=== PATIENT | male | born 1985 | race Caucasian/White ===

== ENCOUNTER 2016-12-13 15:39 | Emergency (ER) | payer MEDICAID ==
[2016-12-13 15:49] VITALS: BP 104/74; PULSE 93; RESP 16; TEMP 98.6; O2SAT 97
--- NOTE | 2016-12-13 17:41 | EDPHY ---
H & P Stated Complaint: Depressed, anxious,exacerbated by relationship problems. SI no plan Time Seen by Provider: 12/13/16 17:20 HPI/ROS: CHIEF COMPLAINT: "I am just really emotional" HISTORY OF PRESENT ILLNESS: 31-year-old male with possible history of depression, history of HIV positive, self discharged on medications for years ago followed by Dr. Serena Gaxiola , currently homeless , "couch surfing" states that today while sitting in the park he became "emotional" describes feeling sad while think it back on his life, states that he recently broke up with boyfriend, he has been on a variety of on healthy relationships and did not or becomes so came to the ER. He adamantly denies suicidal homicidal ideation. Denies hallucination. He denies headache. Denies fever chills. Denies vomiting. Denies chest pain. Denies cough. Denies flu-like symptoms. Denies headache. PHYSICAL EXAM (Prior to examination, patient consented to physical exam, hands were washed and my usual and customary physical exam procedures followed) 1) GENERAL: Well-developed, well-nourished, alert and oriented. Appears to be in no acute distress. 2) HEAD: Normocephalic 3) HEENT: sclera anicteric 4) LUNGS: Breathing comfortably. - Personal History Current Tetanus Diphtheria and Acellular Pertussis (TDAP): Yes - Medical/Surgical History Hx Asthma: No Hx Chronic Respiratory Disease: No Hx Diabetes: No Hx Cardiac Disease: No Hx Renal Disease: No Hx Cirrhosis: No Hx Alcoholism: No Hx HIV/AIDS: Yes Hx Splenectomy or Spleen Trauma: No Other PMH: drug abuse, ulcerative colitis, HIV. depression - Social History Smoking Status: Current every day smoker Constitutional: Initial Vital Signs Temperature (C) 37 C 12/13/16 15:43 Heart Rate 93 12/13/16 15:43 Respiratory Rate 16 12/13/16 15:43 Blood Pressure 104/74 12/13/16 15:43 O2 Sat (%) 97 12/13/16 15:43 O2 Delivery Mode Room Air Allergies/Adverse Reactions: "ABX" Allergy (Uncoded 09/24/15 15:51) Medical Decision Making ED Course/Re-evaluation: 5:39 p.m.: I do not think this patient meets criteria for an M1 hold at this time. He states that he is feeling better after talking to me in the emergency department. Have discussed the 24 hour mental health [facility] which he states that he may go to after leaving the ER. He denies suicidal homicidal ideation. Doubt HIV dementia. He feels comfortable being discharged. Given usual and customary psychiatric precautions and instructions.Care of patient under supervision of [secondary] supervising physician Dr Machado . Departure - Departure Disposition: Home, Routine, Self-Care Clinical Impression: Feeling of sadness Condition: Good Instructions: Depression (ED) Additional Instructions: Return to the emergency department if developed feelings of hurting or killing yourself or others, iif you develop headaches, flu-like symptoms or any other symptoms that concern you. Referrals: [facility] [Clinic] - As per Instructions
== END 2016-12-13 18:24 | disposition home or self-care (01) ==
DX: R45.89 Other symptoms and signs involving emotional state (principal); F17.200 Nicotine dependence, unspecified, uncomplicated

== ENCOUNTER 2017-01-09 18:36 | Emergency (ER) | payer MEDICAID ==
[2017-01-09 18:52] LABS: % IMMATURE GRANULYOCYTES 0.3 % (0.0-1.1); ABSOLUTE IMMATURE GRANULOCYTES 0.02 10^3/uL (0.00-0.10); ADD DIFF? NO; ADD MORPH? NO; ADD SCAN? NO; ATYPICAL LYMPHOCYTE FLAG 20 (0-99); FRAGMENT RBC FLAG 0 (0-99); HEMATOCRIT 46.8 % (40.0-51.0); HEMOGLOBIN 16.4 g/dL (13.7-17.5); LEFT SHIFT FLG 0 (0-99); LIPEMIA HEMOLYSIS FLAG 90 (0-99); MEAN CELL HEMOGLOBIN 30.4 pg (27.9-34.1); MEAN CELL VOLUME 86.8 fL (81.5-99.8); MEAN PLATELET VOLUME 11.2 fL (8.7-11.7); PLATELET CLUMPS FLAG 10 (0-99); PLATELET COUNT 199 10^3/uL (150-400); RED BLOOD CELL COUNT 5.39 10^6/uL (4.40-6.38); RED CELL DISTRIBUTION WIDTH 13.7 % (11.5-15.2)
[2017-01-09 19:15] LABS: ANION GAP 15 mEq/L (8-16); CALCIUM 9.6 mg/dL (8.5-10.4); CARBON DIOXIDE 22 mEq/l (22-31); CHLORIDE 106 mEq/L (97-110); CREATININE 1.1 mg/dL (0.7-1.3); ETHANOL SERUM < 10 mg/dL (0-10); GLOMERULAR FILTRATION RATE > 60; GLUCOSE 81 mg/dL (70-100); POTASSIUM 3.9 mEq/L (3.5-5.2); SODIUM 143 mEq/L (134-144)
[2017-01-09 22:20] VITALS: RESP 16
--- NOTE | 2017-01-09 23:59 | EDPHY ---
H & P Stated Complaint: Hallucinations - Personal History Current Tetanus Diphtheria and Acellular Pertussis (TDAP): Yes Tetanus Vaccine Date: 2014 - Medical/Surgical History Hx Asthma: No Hx Chronic Respiratory Disease: No Hx Diabetes: No Hx Cardiac Disease: No Hx Renal Disease: No Hx Cirrhosis: No Hx Alcoholism: No Hx HIV/AIDS: Yes Hx Splenectomy or Spleen Trauma: No Other PMH: drug abuse, ulcerative colitis, HIV. depression, ADHD, anxiety - Social History Smoking Status: Current every day smoker HPI/ROS: Chief complaint: Mental health hold History of present illness: This is a 31-year-old male brought to the emergency department by EMS, accompanied by police, who have placed him on a mental health hold. Patient was apparently at the [facility]. He was acting inappropriately. 911 was contacted. On my evaluation patient is reporting visual and auditory hallucinations. He is seeing things like "snipers on the roof" and hearing things "a snake like voice telling me I am the devil." He reports people are out to get him. He does not further specify this. He denies suicidal ideation. He denies homicidal ideation. He denies illness or injury. Review of systems: A 10 point review of systems was obtained and other than described above was negative (Chris Saavedra) - Physical Exam Exam: General Appearance: Alert, nontoxic. Eyes: Pupils equal and round no pallor or injection. ENT, Mouth: Mucous membranes moist. Respiratory: There are no retractions, lungs are clear to auscultation. Cardiovascular: Regular rate and rhythm. Gastrointestinal: Abdomen is soft and non tender, no masses, bowel sounds normal. Neurological: Alert. Strength and sensation intact and symmetrical. Skin: Warm and dry, no rashes. Musculoskeletal: Neck is supple non tender. Extremities are symmetrical, full range of motion. Psychiatric: There is no agitation. (Chris Saavedra) Constitutional: Initial Vital Signs Temperature (C) 36.9 C 01/09/17 18:42 Heart Rate 79 01/09/17 18:42 Respiratory Rate 12 01/09/17 18:42 Blood Pressure 125/80 H 01/09/17 18:42 O2 Sat (%) 94 01/09/17 18:42 O2 Delivery Mode Room Air Allergies/Adverse Reactions: doxycycline Allergy (Verified 01/09/17 18:59) HIV meds Allergy (Mild, Uncoded 01/09/17 18:59) Medical Decision Making ED Course/Re-evaluation: Patient seen under the supervision of my secondary supervising physician Dr. Adebayo Henry. Patient presents to the emergency department on a mental health hold as he appears to be gravely disabled having visual and auditory hallucinations as well as paranoia. He is medically evaluated and cleared for psychiatric evaluation. This is pending at time of dictation. Care of patient is turned over to my attending physician Dr. Amanuel Rg at end of shift. ( Chris Saavedra) 0410AM: Patient has been evaluated by mental health. They do not feel that this patient would benefit from inpatient psychiatric hospitalization. The patient uses methamphetamine LSD. They feel that his hallucinations are from meth use and LSD use. They would like him to go to detox. Patient is agreeable on this. At this time I did go and see and evaluate the patient he denies being suicidal homicidal denies wanting to harm himself or anybody else. Calm and cooperative. (Amanuel Rg) Differential Diagnosis: Included but not limited to polysubstance abuse, anxiety, depression, bipolar, schizophrenia (Chris Saavedra) - Data Points Laboratory Results: Laboratory Results 01/09/17 18:43 01/09/17 18:43 01/09/17 01/09/17 01/09/17 19:45 18:43 18:43 WBC 7.43 10^3/uL 10^3/uL (3.80-9.50) RBC 5.39 10^6/uL 10^6/uL (4.40-6.38) Hgb 16.4 g/dL g/dL (13.7-17.5) Hct 46.8 % % (40.0-51.0) MCV 86.8 fL fL (81.5-99.8) MCH 30.4 pg pg (27.9-34.1) MCHC 35.0 g/dL g/dL (32.4-36.7) RDW 13.7 % % (11.5-15.2) Plt Count 199 10^3/uL 10^3/uL (150-400) MPV 11.2 fL fL (8.7-11.7) Neut % (Auto) 60.4 % % (39.3-74.2) Lymph % (Auto) 26.8 % % (15.0-45.0) [place] % (Auto) 10.2 % % (4.5-13.0) Eos % (Auto) 1.2 % % (0.6-7.6) Baso % (Auto) 1.1 % % (0.3-1.7) Nucleat RBC Rel Count 0.0 % % (0.0-0.2) Absolute Neuts (auto) 4.49 10^3/uL 10^3/uL (1.70-6.50) Absolute Lymphs (auto) 1.99 10^3/uL 10^3/uL (1.00-3.00) Absolute Monos (auto) 0.76 10^3/uL 10^3/uL (0.30-0.80) Absolute Eos (auto) 0.09 10^3/uL 10^3/uL (0.03-0.40) Absolute Basos (auto) 0.08 10^3/uL 10^3/uL (0.02-0.10) Absolute Nucleated RBC 0.00 10^3/uL 10^3/uL (0-0.01) Immature Gran % 0.3 % % (0.0-1.1) Immature Gran # 0.02 10^3/uL 10^3/uL (0.00-0.10) Sodium 143 mEq/L mEq/L (134-144) Potassium 3.9 mEq/L mEq/L (3.5-5.2) Chloride 106 mEq/L mEq/L (97-110) Carbon Dioxide 22 mEq/l mEq/l (22-31) Anion Gap 15 mEq/L mEq/L (8-16) BUN 14 mg/dL mg/dL (7-23) Creatinine 1.1 mg/dL mg/dL (0.7-1.3) Estimated GFR > 60 Glucose 81 mg/dL mg/dL (70-100) Calcium 9.6 mg/dL mg/dL (8.5-10.4) Urine Opiates Screen NEGATIVE (NEGATIVE) Urine Barbiturates NEGATIVE (NEGATIVE) Ur Phencyclidine Scrn NEGATIVE (NEGATIVE) Ur Amphetamine Screen NEGATIVE (NEGATIVE) U Benzodiazepines Scrn NEGATIVE (NEGATIVE) Urine Cocaine Screen NON-NEGATIVE H (NEGATIVE) U Marijuana (THC) Screen NON-NEGATIVE H (NEGATIVE) Ethyl Alcohol < 10 mg/dL mg/dL (0-10) Medications Given: Discontinued Medications Lorazepam (Ativan) 1 mg PO EDNOW ONE Stop: 01/10/17 02:56 Last Admin: 01/10/17 02:57 Dose: 1 mg Departure - Departure Disposition: Home, Routine, Self-Care Clinical Impression: Polysubstance abuse Condition: Good Instructions: Polysubstance Abuse (ED) Additional Instructions: 1. Return to the emergency room if he develops worsening symptoms this includes wanting to harm herself or anybody else. If you have these thoughts please return immediately to the emergency room. Referrals: NONE *PRIMARY CARE P,. [Primary Care Provider] - As per Instructions
[2017-01-10] MEDS ORDERED: LORazepam 1 MG TAB PO ONE (02:55)
[2017-01-10 07:00] VITALS: PULSE 78; O2SAT 98
[2017-01-10 07:01] VITALS: BP 117/67; TEMP 98.1
== END 2017-01-10 07:01 | disposition home or self-care (01) ==
LOC: EDUNIT#
DX: F19.10 Other psychoactive substance abuse, uncomplicated (principal); F17.200 Nicotine dependence, unspecified, uncomplicated; B20 Human immunodeficiency virus [HIV] disease
CPT/HCPCS: 80305; G0480

== ENCOUNTER 2017-04-24 15:38 | Emergency (ER) | payer MEDICAID ==
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
[2017-04-24 16:17] LABS: PLATELET COUNT 198 10^3/uL (150-400)
[2017-04-24 19:54] VITALS: RESP 18
[2017-04-24 23:16] VITALS: BP 146/77; PULSE 63; TEMP 98.8; O2SAT 95
== END 2017-04-25 00:30 ==
LOC: EDUNIT#
DX: F23 Brief psychotic disorder (principal); B20 Human immunodeficiency virus [HIV] disease; F17.200 Nicotine dependence, unspecified, uncomplicated
CPT/HCPCS: 80305; G0480